=== PATIENT | female | born 2000 | race Caucasian/White ===

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

== ENCOUNTER 2019-04-11 22:28 | Emergency (ER) | payer MEDICAID ==
[~2019-04-11] VITALS: Ht 162.6 cm; Wt 68.0 kg
[2019-04-11 23:07] VITALS: BP_SYST 111
--- NOTE | 2019-04-11 23:12 | NUR ---
Pt placed to ER bed 01, to gown, report given to LIT Partida.
--- NOTE | 2019-04-11 23:19 | NUR ---
received patient from triage with c/o rash that worsened in 2 days. Patient has large welts on upper and lower extremeties, w/ uticaria. Patient placed in a gown, warm blanket given. mother at bedside. NAD noted. Pending ER MD assessment.
[2019-04-11 23:57] VITALS: BP_SYST 111
--- NOTE | 2019-04-11 23:57 | NUR ---
Patient given written and verbal discharge instructions, also given an Rx for prednosone, pt and mother verbalizes understanding. ER MD discussed with patient the results and treatment provided. Patient in stable condition. ID arm band removed.Patient educated on uticaria management and to follow up with PMD. Pain Scale 0/10.Opportunity for questions provided and answered. Medication side effect fact sheet provided.
== END 2019-04-11 23:57 | disposition home or self-care (01) ==
LOC: SED 22:28
DX: L50.9 Urticaria, unspecified (principal); R21 Rash and other nonspecific skin eruption
CPT/HCPCS: 99283

== ENCOUNTER 2019-05-15 13:40 | Emergency (ER) | payer MEDICAID ==
[~2019-05-15] VITALS: Ht 165.1 cm; Wt 52.2 kg
[2019-05-15 13:55] VITALS: BP_SYST 110
[2019-05-15] MEDS ORDERED: NACL 0.9% 1,000 ML IV ONE (13:58)
--- NOTE | 2019-05-15 14:00 | NUR ---
RN conducted test for xray clearance
--- NOTE | 2019-05-15 14:08 | NUR ---
Patient to ER bed 8 to gown for evaluation. Side rails up. Report given to Oswaldo MURRIETA.
--- NOTE | 2019-05-15 14:09 | NUR ---
ER at bedside examining patient.
--- NOTE | 2019-05-15 14:50 | NUR ---
RN started IV access into left ac in one attempt with 22g. Pt taken to CT via gurney by the safety tech.
[2019-05-15 15:19] LABS: CALCIUM 9.1 mg/dL (8.4-11.0); CREATININE 0.71 mg/dL (0.55-1.30); POTASSIUM 3.9 mmol/L (3.5-5.1); PROTHROMBIN TIME 9.8 SECS (9.5-12.5)
[2019-05-15 15:24] LABS: ALBUMIN 3.8 g/dL (3.4-4.8); TOTAL BILIRUBIN 0.3 mg/dL (0.0-1.0)
[2019-05-15 15:25] LABS: EOSINOPHILS # (AUTO) 0.1 K/uL (0.0-0.4); EOSINOPHILS % (AUTO) 1.4 % (0.0-4.0); LYMPHOCYTES # (AUTO) 1.3 K/uL (1.0-5.5); MONOCYTES # (AUTO) 0.4 K/uL (0.0-1.0); NEUTROPHILS # (AUTO) 2.7 K/uL (1.8-7.7)
[2019-05-15 15:32] LABS: BASOPHILS % (AUTO) 0.9 % (0.0-2.0); HEMATOCRIT 33.8 % (36-48); HEMOGLOBIN 11.3 g/dL (12.0-16.0); LYMPHOCYTES % (AUTO) 29.4 % (20.5-51.5); MEAN CORPUSCULAR HEMOGLOBIN 31 pg (27-31); MEAN CORPUSCULAR HGB CONC 34 % (32-36); MEAN CORPUSCULAR VOLUME 93 fL (79.0-98.0); MONOCYTES % (AUTO) 8.1 % (1.7-9.3); NEUTROPHILS % (AUTO) 60.2 % (40.0-70.0); PLATELET COUNT (AUTO) 229 K/uL (130-430); RED BLOOD CELL COUNT(AUTO) 3.65 MIL/uL (4.2-6.2); RED CELL DISTRIBUTION WIDTH 12.8 % (9.0-15.0); WHITE BLOOD COUNT (AUTO) 4.5 K/uL (4.5-11.0)
[2019-05-15] MEDS ORDERED: IOHEXOL 100 ML IV ONE (16:45)
[2019-05-15] MEDS ORDERED: cefTRIAXone 1 GM IVPB PREMIX 50 ML IV ONE (16:45)
--- NOTE | 2019-05-15 17:00 | NUR ---
PT HAS BEEN RESTING COMFORTABLY AND MD IS AWAITING FULL RAD REPORT WITH CONTRAST,
--- NOTE | 2019-05-15 17:54 | NUR ---
Patient given written and verbal discharge instructions and verbalizes understanding. ER MD discussed with patient the results and treatment provided. Patient in stable condition. ID arm band removed. IV catheter removed intact and dressing applied, no active bleeding. Rx of PENVK, TYLENOL WITH CODEINE given. Patient educated on pain management and to follow up with PMD. Pain Scale 1/10. Opportunity for questions provided and answered. Medication side effect fact sheet provided.
[2019-05-15 17:55] VITALS: BP_SYST 112
== END 2019-05-15 17:54 | disposition home or self-care (01) ==
LOC: SED 13:40
DX: J02.9 Acute pharyngitis, unspecified (principal)
CPT/HCPCS: 36415; 70490; 70491; 71045; 80053; 82150; 83605; 83690; 85025; 85610; 85730; 86403; 87040; 87081; 99284; J7030; Q9967

== ENCOUNTER 2019-05-18 17:28 | Emergency (ER) | payer MEDICAID ==
[~2019-05-18] VITALS: Ht 165.1 cm; Wt 68.0 kg
[2019-05-18 18:08] VITALS: BP_SYST 112
--- NOTE | 2019-05-18 19:27 | NUR ---
PLACED IN BED 3. HERE FOR NAUSEA,VOMITING,DIARRHEA,ABDOMINAL PAIN POSSIBLY DUE TO ANTIBIOTIC THERAPY WITH PENICILLIN FOR TONSILLITIS. ANTIBIOTIC HAS SINCE BEEN CHANGED TO CLINDAMYCIN.
--- NOTE | 2019-05-18 19:27 | NUR ---
Patient to ER bed 3 to gown for evaluation. Side rails up.
--- NOTE | 2019-05-18 19:44 | NUR ---
ZOFRAN 8 MG ODT AND BICILLIN 1.2 M UNITS IM GIVEN ORDERED.
[2019-05-18] MEDS ORDERED: PENICILLIN G BENZATHINE 1.2 MMU/2 ML SYR IM ONE (19:45)
[2019-05-18] MEDS ORDERED: ONDANSETRON 4 MG ODT TAB PO ONE (19:45)
--- NOTE | 2019-05-18 20:28 | NUR ---
DISCHARGED STABLE AND IMPROVED, PRESCRIPTION, VERBAL AND WRITTEN AFTERCARE INSTRUCTIONS GIVEN. VERBALIZED UNDERSTANDING. LEFT AMBULATORY WITH STABLE GAIT.
[2019-05-18 20:32] VITALS: BP_SYST 97
== END 2019-05-18 20:32 | disposition home or self-care (01) ==
LOC: SED 17:28
DX: R11.2 Nausea with vomiting, unspecified (principal)
CPT/HCPCS: 96372; 99283; J0561; Q0162

== ENCOUNTER 2021-12-11 19:45 | Emergency (ER) | payer MEDICAID ==
[~2021-12-11] VITALS: Ht 167.6 cm; Wt 84.4 kg
[2021-12-11 19:50] VITALS: BP_SYST 117
--- NOTE | 2021-12-11 19:55 | NUR ---
PT HERE FOR GENERALIZED RASH AND ITCHINESS. PER PTRASH STARTED LAST FRIDAY AND TOOK BENADRYL AND WENT AWAY. PER PT WHEN BENADRYL WEAN RASHES AND HIVES STARTS TO COM BACK. NOTED GENERALIZED HIVES WELL. NO LESION, NO NOTED PUS OR NO BLISTER NOTED. PT DENIES FEVER AND PAIN DENIES ALLERGIES TO MEDS AND FOOD. PMH:DENIES PT AAOX4, NO SOB NOTED AND NOT IN ANY DISTRESS. ISOLATION PREACAUTION INIATED.
--- NOTE | 2021-12-11 22:35 | NUR ---
PT SEEN AND EXAMINE BY DR. PRINCE.
[2021-12-11] MEDS ORDERED: FAMOTIDINE 20 MG TABLET PO ONE (22:45)
[2021-12-11] MEDS ORDERED: methylPREDNISolone SOD SUCC/PF 62.5 MG/ML VIAL IM ONE (22:45)
[2021-12-11] MEDS ORDERED: DIPHENHYDRAMINE INJ 50 MG/ML VIAL IM ONE (22:45)
[2021-12-11] MEDS ORDERED: DIPH25TA62 PO (22:46)
[2021-12-11] MEDS ORDERED: FAMO20TA8 PO (22:46)
[2021-12-11] MEDS ORDERED: PRED20TA PO (22:46)
--- NOTE | 2021-12-11 23:24 | NUR ---
DC PT HOME AAO, NO SOB NOTED AND NOT IN ANY DISTRESS. DC INSTRUCTION AND PRESCRIPTION WERE GIVEN TO PT AND SHE VERBALIZED UNDERSTANDING.
[2021-12-11 23:26] VITALS: BP_SYST 123
== END 2021-12-11 23:25 | disposition home or self-care (01) ==
LOC: SED 19:45
DX: R21 Rash and other nonspecific skin eruption (principal); T45.0X5A Adverse effect of antiallergic and antiemetic drugs, initial encounter; F12.90 Cannabis use, unspecified, uncomplicated; Z79.899 Other long term (current) drug therapy; Y92.89 Other specified places as the place of occurrence of the external cause
CPT/HCPCS: 99284; 96372; J1200; J2930

== ENCOUNTER 2022-04-03 18:33 | Emergency (ER) | payer MEDICAID ==
[~2022-04-03] VITALS: Ht 167.6 cm; Wt 74.8 kg
[~2022-04-03 18:33] MED LIST: DIPH25TA62 PO; FAMO20TA8 PO; PRED20TA PO
[2022-04-03 18:35] VITALS: BP_SYST 109
--- NOTE | 2022-04-03 19:00 | NUR ---
COVID SPECIMEN COLLECTED FROM BILATERAL NARES SENT TO LAB.
--- NOTE | 2022-04-03 19:05 | NUR ---
ER at bedside examining patient.
[2022-04-03] MEDS ORDERED: MAG HYDROX/AL HYDROX/SIMETH 30 ML, DICYCLOMINE HCL 20 MG, LIDOCAINE VISCOUS 2% 15ML (PO... PO ONE ×3 (19:15)
[2022-04-03] MEDS ORDERED: ONDA-8 TL (20:16)
[2022-04-03] MEDS ORDERED: OSEL75CA PO (20:16)
[2022-04-03] MEDS ORDERED: FAMO-132 PO (20:16)
--- NOTE | 2022-04-03 21:00 | NUR ---
Patient is a 21-year-old female with no significant past medical history presenting to the ED reporting a 1 day history of subjective fevers, nausea, vomiting, cough, body aches, difficulty breathing, loss of appetite, generalized abdominal pain, and mild back pain. Patient reports that her friend was recently diagnosed with a stomach flu. She otherwise denies dysuria, hematuria, diarrhea, chest pain, or other symptoms at this time. Patient reports taking ibuprofen at home with mild relief of symptoms.
[2022-04-03] MEDS: ONDANSETRON 4 MG ODT TAB PO ONE (22:52)
[2022-04-03] MEDS: KETOROLAC TROMETHAMINE 30 MG VIAL IM ONE (22:53)
[2022-04-03 22:56] VITALS: BP_SYST 109
--- NOTE | 2022-04-03 23:00 | NUR ---
Patient given written and verbal discharge instructions and verbalizes understanding. ER MD discussed with patient the results and treatment provided. Patient in stable condition. ID arm band removed. Opportunity for questions provided and answered. Medication side effect fact sheet provided.
== END 2022-04-03 21:00 | disposition home or self-care (01) ==
LOC: SED 18:33
DX: J10.1 Influenza due to other identified influenza virus with other respiratory manifestations (principal); R50.9 Fever, unspecified; R05.9 Cough, unspecified; R11.2 Nausea with vomiting, unspecified; F17.200 Nicotine dependence, unspecified, uncomplicated; F12.90 Cannabis use, unspecified, uncomplicated; Z79.899 Other long term (current) drug therapy; Z20.822 Contact with and (suspected) exposure to COVID-19
CPT/HCPCS: 99284; 71045; 87426; 36415; 96372; 87804 ×2; Q0162; J2001; J1885

== ENCOUNTER 2022-06-27 12:47 | Emergency (ER) | payer MEDICAID ==
[~2022-06-27] VITALS: Ht 165.1 cm; Wt 72.6 kg
[2022-06-27 12:47] VITALS: BP_SYST 103
[~2022-06-27 12:47] MED LIST changes: +FAMO-132 PO; +ONDA-8 TL; +OSEL75CA PO
--- NOTE | 2022-06-27 12:50 | NUR ---
Patient triaged and placed in waiting room. VSS and patient appears in no acute distress at this time. Accompanied by SELF, awaiting available bed, and MD notified of need for MSE.
--- NOTE | 2022-06-27 13:01 | NUR ---
PT STATES 1 MONTH AGO SHE WAS HIKING AND FELL INTO A RIVER, HAD A BRUISE TO LEFT BERMAN AND STATES THAT THE BRUISE HAS NOT GONE AWAY. STATES SMALL AREA OF NUMBNESS TO LEFT BERMAN.
--- NOTE | 2022-06-27 13:11 | NUR ---
DR HAJI OUT TO TRIAGE ROOM FOR EVALUATION
--- NOTE | 2022-06-27 13:51 | NUR ---
PT CALLED AND NOT IN WAITING ROOM
--- NOTE | 2022-06-27 14:01 | NUR ---
CALLED FOR PT AND PT NOT IN WAITING ROOM
--- NOTE | 2022-06-27 14:08 | NUR ---
PT ELOPED WITHOUT DISCHARGE PAPERS
== END 2022-06-27 14:08 | disposition left against medical advice (07) ==
LOC: SED 12:47
DX: S80.12XA Contusion of left lower leg, initial encounter (principal); H93.13 Tinnitus, bilateral; F12.90 Cannabis use, unspecified, uncomplicated; Z79.899 Other long term (current) drug therapy; W16.112A Fall into natural body of water striking water surface causing other injury, initial encounter; Y93.01 Activity, walking, marching and hiking; Y92.89 Other specified places as the place of occurrence of the external cause; Y99.8 Other external cause status
CPT/HCPCS: 99281

== ENCOUNTER 2023-03-10 11:46 | Emergency (ER) | payer MEDICAID ==
[~2023-03-10] VITALS: Ht 167.6 cm; Wt 63.5 kg
[2023-03-10 11:46] VITALS: BP_SYST 101; PULSE 73; RESP 18; TEMP 97.9; O2SAT 97
[2023-03-10 12:12] LABS: BILIRUBIN,URINE 1+ (NEGATIVE); BLOOD, URINE NEGATIVE (NEGATIVE); CLARITY/URINE CLEAR (CLEAR); COLOR,URINE YELLOW (YELLOW); GLUCOSE,URINE NEGATIVE (NEGATIVE); KETONES,URINE 2+ (NEGATIVE); LEUKOCYTE ESTERASE ,URINE NEGATIVE (NEGATIVE); NITRITE, URINE NEGATIVE (NEGATIVE); PROTEIN URINE NEGATIVE (NEGATIVE); UROBILINOGEN,URINE 0.2 (0.2-1.0)
[2023-03-10 12:34] LABS: BACTERIA,URINE RARE /HPF (None Seen); RBC,URINE 0-3 /HPF (0-3); WBC,URINE 0-3 /HPF (0-3)
[2023-03-10 12:41] LABS: MUCUS,URINE 1+ /LPF (None Seen)
[2023-03-10] MEDS ORDERED: DOXY100T2 PO (12:50)
[2023-03-10] MEDS ORDERED: METR-154 PO (12:50)
[2023-03-10 13:15] VITALS: BP_SYST 98; PULSE 66; RESP 15; TEMP 98.6; O2SAT 100
== END 2023-03-10 13:13 | disposition home or self-care (01) ==
LOC: SED 11:46
DX: R30.0 Dysuria (principal); R35.0 Frequency of micturition; R39.15 Urgency of urination; Z79.899 Other long term (current) drug therapy
CPT/HCPCS: 36415; 81000; 81001; 81015; 81025; 87086; 87491; 99283